=== PATIENT | male | born 1985 | race Caucasian/White ===

== ENCOUNTER 2024-02-03 19:33 | Emergency (ER) | payer OTHER, SELFPAY ==
[2024-02-03 19:33] VITALS: BMI 25.0
[2024-02-03 19:35] VITALS: BP 140/81
--- NOTE | 2024-02-03 20:07 | ED.GENMED ---
History of Present Illness
<Ceci Matt NP - Last Filed: 02/05/24 21:14>
General
Chief Complaint: Suicidal Ideation
Source: patient
Exam Limitations: none
Time Seen by Provider: 02/03/24 19:43
Nursing documentation reviewed up to this point in time: agreed with
Travel History
Have you had any contact with someone who has COVID-19?: No
Do you have any symptoms of coronavirus? Fever > 100 degrees, chills, cough, shortness of breath, sore throat, loss of taste or smell, muscle aches, or headache?: No
History of Present Illness
History of Present Illness:
Patient to ED on 302. He states he accidentally overdosed on fentanyl today Narcane provided by police and then brought to ED. He denies any SI, HI. States todays OD was an accident. He offers no complaints
Past History
<Ceci Matt NP - Last Filed: 02/05/24 21:14>
Past History
ED Past Medical History: Psychiatric (depression)
ED Past Surgical History: None
Social History
Tobacco: Smoker (1/2ppd)
Alcohol: None
Drug: Narcotics (fentanyl)
Personal: Single (recent splint with mother of his childern)
Living: with family (lives with parents)
Employment: Employed (recently lost job with [employer]. Employed now with [employer].)
Review of Systems
<Ceci Matt NP - Last Filed: 02/05/24 21:14>
Review of Systems
Allergies reviewed?: Yes
All Other Systems: ROS reviewed and negative except as documented in HPI and ROS
Constitutional: Reports no symptoms
EENT: Reports no symptoms
Respiratory: Reports no symptoms
Cardiac: Reports no symptoms
ABD/GI: Reports no symptoms
: Reports no symptoms
Musculoskeletal: Reports no symptoms
Skin: Reports no symptoms
Neurological: Reports no symptoms
Psychiatric: Reports no symptoms
Phy Exam
<Ceci Matt NP - Last Filed: 02/05/24 21:14>
General Physical Exam
General Presentation: well appearing and no apparent distress
General age: appears stated age
General Skin: warm and dry
General Habitus: normal
General Mental: alert
Cardiovascular Exam
Cardiovascular Exam: regular rate/rhythm and no edema
Pulmonary Exam
Pulmonary Exam: lungs clear and no respiratory distress
Gastrointestinal Exam
Gastrointestinal Exam: normal bowel sounds, non tender and soft
Neurological Exam
Neurological Exam: alert, oriented x3, CN II-XII intact, no motor deficits, no sensory deficits and speech normal
Musculoskeletal Exam
Musculoskeletal Exam: full ROM and neuro vasc intact
Skin Exam
Skin Exam: normal color, warm/dry and no rash
Psychiatric Exam
Psychiatric Exam: normal mood/affect
Course
<Ceci Matt TEST WORKER - Last Filed: 02/05/24 21:14>
Orders/Labs/Results
Orders:
Orders
02/03/24 20:06
Crisis Consult Urgent
Reason for Consult: 302
02/03/24 20:58
Alcohol Urgent
Complete Blood Count/With Diff Urgent
Comprehensive Metabolic Panel Urgent
Creatine Phosphokinase Urgent
Comment: ADD ON
02/03/24 21:11
Fentanyl, Urine Urgent
Urine Drug Abuse Screen Urgent
Date Specimen was Collected: 02/03/24
Time Specimen was Collected: 21:10
02/03/24 22:20
Add On- LAB Urgent
Tests Added?: CPK
02/03/24 23:00
Nicotine [Nicoderm Transdermal] 21 mg TRANSDERM ONCE ONE
02/04/24 Breakfast
Regular
At Your Request: Limited, Spar Machine Operator Required
Does patient need a safe tray?: Yes
02/04/24 09:44
BMP [Basic Metabolic Panel] Urgent
CBC/With Diff [Complete Blood Count/With Diff] Urgent
CPK [Creatine Phosphokinase] Urgent
Abnormal Lab Results
02/03/24 02/03/24 02/04/24
20:58 21:11 09:44
WBC 26.1 H 10^3/uL 12.4 H 10^3/uL
(4.8-10.8) (4.8-10.8)
RBC 4.24 L 10^6/uL 3.95 L 10^6/uL
(4.70-6.10) (4.70-6.10)
MCV 100.5 H fL 99.7 H fL
(80.0-94.0) (80.0-94.0)
MCH 34.9 H pg 34.9 H pg
(27.0-31.0) (27.0-31.0)
Abs Immat Gran (auto) 0.1 H 10^3/uL
(0-0.05)
Absolute Neuts (auto) 24.3 H 10^3/uL 10.5 H 10^3/uL
(1.4-6.5) (1.4-6.5)
Absolute Lymphs (auto) 0.9 L 10^3/uL
(1.2-3.4)
Absolute Monos (auto) 0.8 H 10^3/uL
(0.1-0.6)
Neutrophils % 93.0 H % 84.7 H %
(42.2-75.2) (42.2-75.2)
Lymphocytes % 3.3 L % 11.8 L %
(20.5-51.1) (20.5-51.1)
Sodium 132 L mmol/L 133 L mmol/L
(135-145) (135-145)
Potassium 5.4 H mmol/L
(3.5-5.1)
Chloride 94 L mmol/L
(98-107)
Glucose 151 H mg/dl
(70-99)
Total Bilirubin 1.4 H mg/dl
(0.2-1.3)
AST 61 H U/L
(17-59)
Creatine Kinase 521 H U/L 256 H D U/L
(55-170) (55-170)
Urine Opiates Screen Positive H
(Negative)
Urine Fentanyl Screen Positive H
(Negative)
02/04/24 09:44
02/04/24 09:44
Vital Signs
Initial and Last Documented VS:
Initial Vital Signs
Temp Pulse Resp BP Pulse Ox
98.7 F 94 16 140/81 95
02/03/24 19:35 02/03/24 19:35 02/03/24 19:35 02/03/24 19:35 02/03/24 19:35
Last Documented Vital Signs
Temp Pulse Resp BP Pulse Ox
98.7 F 90 18 104/81 97
02/03/24 19:35 02/04/24 09:13 02/04/24 09:13 02/04/24 09:13 02/04/24 09:13
<Andrews Torres MD - Last Filed: 02/03/24 23:11>
Orders/Labs/Results
Orders:
Orders
02/03/24 20:06
Crisis Consult Urgent
Reason for Consult: 302
02/03/24 20:58
Alcohol Urgent
Complete Blood Count/With Diff Urgent
Comprehensive Metabolic Panel Urgent
Creatine Phosphokinase Urgent
Comment: ADD ON
02/03/24 21:11
Fentanyl, Urine Urgent
Urine Drug Abuse Screen Urgent
Date Specimen was Collected: 02/03/24
Time Specimen was Collected: 21:10
02/03/24 22:20
Add On- LAB Urgent
Tests Added?: CPK
02/03/24 23:00
Nicotine [Nicoderm Transdermal] 21 mg TRANSDERM ONCE ONE
02/04/24 Breakfast
Regular
At Your Request: Limited, Spar Machine Operator Required
Does patient need a safe tray?: Yes
02/04/24 09:44
BMP [Basic Metabolic Panel] Urgent
CBC/With Diff [Complete Blood Count/With Diff] Urgent
CPK [Creatine Phosphokinase] Urgent
Abnormal Lab Results
02/03/24 02/03/24 02/04/24
20:58 21:11 09:44
WBC 26.1 H 10^3/uL 12.4 H 10^3/uL
(4.8-10.8) (4.8-10.8)
RBC 4.24 L 10^6/uL 3.95 L 10^6/uL
(4.70-6.10) (4.70-6.10)
MCV 100.5 H fL 99.7 H fL
(80.0-94.0) (80.0-94.0)
MCH 34.9 H pg 34.9 H pg
(27.0-31.0) (27.0-31.0)
Abs Immat Gran (auto) 0.1 H 10^3/uL
(0-0.05)
Absolute Neuts (auto) 24.3 H 10^3/uL 10.5 H 10^3/uL
(1.4-6.5) (1.4-6.5)
Absolute Lymphs (auto) 0.9 L 10^3/uL
(1.2-3.4)
Absolute Monos (auto) 0.8 H 10^3/uL
(0.1-0.6)
Neutrophils % 93.0 H % 84.7 H %
(42.2-75.2) (42.2-75.2)
Lymphocytes % 3.3 L % 11.8 L %
(20.5-51.1) (20.5-51.1)
Sodium 132 L mmol/L 133 L mmol/L
(135-145) (135-145)
Potassium 5.4 H mmol/L
(3.5-5.1)
Chloride 94 L mmol/L
(98-107)
Glucose 151 H mg/dl
(70-99)
Total Bilirubin 1.4 H mg/dl
(0.2-1.3)
AST 61 H U/L
(17-59)
Creatine Kinase 521 H U/L 256 H D U/L
(55-170) (55-170)
Urine Opiates Screen Positive H
(Negative)
Urine Fentanyl Screen Positive H
(Negative)
02/04/24 09:44
02/04/24 09:44
Vital Signs
Initial and Last Documented VS:
Initial Vital Signs
Temp Pulse Resp BP Pulse Ox
98.7 F 94 16 140/81 95
02/03/24 19:35 02/03/24 19:35 02/03/24 19:35 02/03/24 19:35 02/03/24 19:35
Last Documented Vital Signs
Temp Pulse Resp BP Pulse Ox
98.7 F 90 18 104/81 97
02/03/24 19:35 02/04/24 09:13 02/04/24 09:13 02/04/24 09:13 02/04/24 09:13
<Ceci Matt NP - Last Filed: 02/05/24 21:14>
*Critical Care Note
Total Time (30-74mins, 75-104mins- exclusive of procedures): Not Applicable
ED Attending Note
<Ceci Matt NP - Last Filed: 02/05/24 21:14>
-
Portions of this chart may have been created with voice recognition software.� Occasional wrong word or��sound alike� substitutions may have occurred due to the inherent limitations of voice recognition software.
<Andrews Torres MD - Last Filed: 02/03/24 23:11>
ED Attending Note
Patient seen and examined by attending physician: Yes
ED Attending Note:
I have seen and evaluated the patient with a [id number] encounter. I have spoken to the advance practicer provider and involved in the medical history, the physical exam, medical decision making.
Evaluation and management service: agree unless noted differently below.
Results interpretation: agree unless noted differently below.
Focused HPI: 38-year-old male with a past medical history of anxiety depression, opioid abuse presents for evaluation after an opioid overdose�he was brought in by police on a 302 which was filed by his mother with concern for suicidality. Patient
says that he unintentionally overdosed on opiates. He says he is not suicidal although he admits to being depressed�apparently lost visiting rights for his children and has not been allowed to be involved in her life which has made him quite
depressed. He denies any hallucinations. Denies any homicidal ideation. He has no physical complaints at present. According to 302 report patient is not been taking care of himself, not bathing, losing weight and not eating right. He apparently
expressed some suicidality today and later was found by mother on the ground unresponsive, he police called and he was given Narcan with immediate improvement.
Physical exam: Awake alert not in distress. Pupils midrange and reactive to light. Vital signs all within normal limits including a respiratory rate of 16 and a oxygen saturation of 95% on room air. No signs of trauma. Depressed mood, reasonable
insight but poor judgment.
Medical Decision Makin-year-old male presents for evaluation of suicidality�was brought in on a 302 after opioid overdose for which she received Narcan, through to report mentions suicidality and depression. Basic screening labs sent off�is
CBC showed a leukocytosis to 26 which is likely reactive in the setting of his recent opioid overdose requiring Narcan. He has no signs or symptoms of infection. CMP shows marginal hyperkalemia but normal renal function. Very mild rhabdo with CPK
of 500. He is taking p.o. fluids here. His UDS is positive for fentanyl. Awaiting telepsychiatry assessment�patient says that he does not feel he needs psychiatric treatment but does wish to be treated for drug abuse and rehab. Will reassess
after psychiatry assessment.
Patient assessed by telepsychiatry�likely released from 302 although final report is pending. Patient does wish for inpatient rehab discussed with [facility] to perform an assessment.
[facility] ETA midnight, should be able to place an inpatient rehab without issue. Continue to monitor.
Discharge Plan
Departure
Patient Disposition: Psych Facility
Date of Disposition: 02/04/24
Time of Disposition: 05:02
Patient with high blood pressure during this ER visit?: Yes
Discharge Problem:
Opioid overdose, Leukocytosis, Hyperkalemia, Involuntary commitment
Instructions: Opioid Overdose (DC), How to Give Naloxone ED
Referrals:
UNKNOWN - PT NOT,INTERVIEWE [Family Provider] -
Activity Restrictions/Additional Instructions:
In the emergency room you had an elevated white blood cell count and a slightly elevated potassium level�you must have repeat blood work done next week to ensure that these are improving.
Thank you for visiting the Emergency Department at [facility].
1. Please schedule a follow up appointment as directed. Call first thing tomorrow morning to make an appointment.
2. If indicated, please take your medications as instructed and indicated on discharge paperwork.
3. If any of your symptoms do not improve, or persist, or become more severe within 6-12 hours, please return to the emergency department for further care.
4. Please return to the emergency department if you develop a headache, neck pain/stiffness, fever greater than 100.4F, chest pain, shortness of breath, persistent nausea, vomiting, slurred speech, difficulty walking, numbness/tingling, weakness,
signs of infection or any other symptoms that are worrisome to you.
Please call [phone] if you have any questions.
Interventions
Interventions:
*Risk Screen - Suicide Last Done: 02/03/24 19:35
*General Assessment Last Done: 02/03/24 19:45
*Neglect/Abuse Screening Last Done: 02/03/24 19:45
ED- Fall Risk Assessment Last Done: 02/03/24 19:45
*Nursing Disposition Last Done: 02/04/24 11:20
ED-Psychological Assessment Last Done: 02/04/24 09:13
Discharge Date and Time
Discharge Date/Time: 02/04/24 11:21
Print Language: FIJIAN
[2024-02-03 21:06] LABS: % Basophils 0.2 % (0-2); % Immature Granulocytes 0.5 % (0-0.5); % Lymphocytes 3.3 % (20.5-51.1); Absolute Basophils 0.1 10^3/uL (0-0.2); Absolute Immature Granulocytes 0.1 10^3/uL (0-0.05); Absolute Lymphocytes 0.9 10^3/uL (1.2-3.4); Absolute Monocytes 0.8 10^3/uL (0.1-0.6); Absolute Neutrophils 24.3 10^3/uL (1.4-6.5); Hematocrit 42.6 % (39.0-52.0); Hemoglobin 14.8 g/dL (13.0-18.0); Mean Corp Hgb Conc. 34.7 g/dL (33.0-37.0); Mean Corpuscular Hgb 34.9 pg (27.0-31.0); Mean Corpuscular Volume 100.5 fL (80.0-94.0); Mean Platelet Volume 9.5 fL (7.4-10.4); Nucleated Red Blood Cells % 0 % (-); Platelet Count 210 10^3/uL (130-400); Red Blood Cell Count 4.24 10^6/uL (4.70-6.10); White Blood Cell Count 26.1 10^3/uL (4.8-10.8)
[2024-02-03 21:30] LABS: Amphetamines Negative (Negative); Barbiturates Negative (Negative); Benzodiazepines Negative (Negative); Buprenorphine Negative (Negative); Cocaine Negative (Negative); Marijuana Negative (Negative); Methadone Negative (Negative); Methamphetamines Negative (Negative); Opiates Positive (Negative); Phencyclidine Negative (Negative); Tricyclic Antidepressants Negative (Negative)
[2024-02-03 21:44] LABS: ALT (SGPT) 46 U/L (0-50); AST (SGOT) 61 U/L (17-59); Albumin 4.2 g/dl (3.5-5.0); Alkaline Phosphatase 73 U/L (38-126); Blood Urea Nitrogen 13 mg/dl (9-20); Carbon Dioxide 29 mmol/L (22-30); Chloride 94 mmol/L (98-107); Glucose 84 mg/dl (70-99); Potassium 5.4 mmol/L (3.5-5.1); Sodium 132 mmol/L (135-145); Total Bilirubin 1.4 mg/dl (0.2-1.3); Total Protein 6.8 g/dl (6.3-8.2); eGFR > 60.00
[2024-02-03 21:45] LABS: Alcohol None Detected
[2024-02-03 21:51] LABS: Fentanyl, Urine Positive (Negative)
[2024-02-03 22:51] LABS: Creatine Phosphokinase 521 U/L (55-170)
[2024-02-03] MEDS: NICODERM TRANSDERMAL 21 MG TRANSDERM (22:54)
--- NOTE | 2024-02-03 23:36 | EDRN ---
Report received, 1:[address], waiting on telepsych report and for [facility] to come see patient.
--- NOTE | 2024-02-04 00:15 | EDRN ---
302 was upheld, crisis will work on placement, patient is in paper scrubs and on a 1:1 and will continued to be monitored, patient is sleeping at this time.
--- NOTE | 2024-02-04 01:58 | EDRN ---
Patient has remained asleep and 1:[address], will continue to monitor
--- NOTE | 2024-02-04 04:00 | EDRN ---
Patient ambulated to the restroom and back in bed resting, 1:1 remains
--- NOTE | 2024-02-04 07:01 | EDRN ---
Assumed care. Pt is a reported 302 status pt. He is in room 34 with an ED t providing observation for safety. In paper scrubs. Currently asleep. Breakfast tray ordered. Skin color normal with unlabored resp pattern. Will check VS when wakes
[2024-02-04 09:13] VITALS: BP 104/81
[2024-02-04 09:52] LABS: % Basophils 0.2 % (0-2); % Eosinophils 0.7 % (0-6); % Immature Granulocytes 0.3 % (0-0.5); % Lymphocytes 11.8 % (20.5-51.1); % Monocytes 2.3 % (1.7-9.3); % Neutrophils 84.7 % (42.2-75.2); Absolute Eosinophils 0.1 10^3/uL (0-0.7); Absolute Lymphocytes 1.5 10^3/uL (1.2-3.4); Absolute Monocytes 0.3 10^3/uL (0.1-0.6); Absolute Neutrophils 10.5 10^3/uL (1.4-6.5); Hematocrit 39.4 % (39.0-52.0); Hemoglobin 13.8 g/dL (13.0-18.0); Mean Corpuscular Hgb 34.9 pg (27.0-31.0); Mean Corpuscular Volume 99.7 fL (80.0-94.0); Mean Platelet Volume 9.6 fL (7.4-10.4); Nucleated Red Blood Cells % 0 % (-); Platelet Count 187 10^3/uL (130-400); Red Blood Cell Count 3.95 10^6/uL (4.70-6.10); Red Cell Dist. Width 13.8 % (11.5-14.5); White Blood Cell Count 12.4 10^3/uL (4.8-10.8)
[2024-02-04 10:18] LABS: Blood Urea Nitrogen 9 mg/dl (9-20); Calcium 8.7 mg/dl (8.4-10.2); Carbon Dioxide 29 mmol/L (22-30); Chloride 99 mmol/L (98-107); Creatine Phosphokinase 256 U/L (55-170); Estimated Creatinine Clearance 115 ml/min; Glucose 151 mg/dl (70-99); Potassium 3.5 mmol/L (3.5-5.1); Sodium 133 mmol/L (135-145); eGFR > 60.00
--- NOTE | 2024-02-04 11:14 | ED.CRISIS ---
ED Crisis Note
ED Crisis Note
Subjective:
No physical complaints. Awaiting for 302 placement
Objective:
Alert and oriented no distress cooperative. Lungs clear and equal. Heart regular rate and rhythm no murmur. Abdomen nontender. No unusual rash. Warm and dry. No CVA tenderness
Assessment/Plan:
Patient had a transient leukocytosis last evening. Likely reactive. He has no infectious symptoms. White count has significantly improved. Potassium stable. CPK decreasing. Medically cleared.
== END 2024-02-04 11:21 ==
LOC: EMR 19:33
PROVIDERS: Emergency Medicine; Nurse Practitioner; EMERGENCY PHYSICIAN Emergency Medicine
DX: T40.2X1A Poisoning by other opioids, accidental (unintentional), initial encounter (principal); D72.829 Elevated white blood cell count, unspecified; E87.5 Hyperkalemia; R03.0 Elevated blood-pressure reading, without diagnosis of hypertension
CPT/HCPCS: 99285; 80048; 80053; 80306; 80307; 82077; 82550; 85025